=== PATIENT | female | born 1970 | race Caucasian/White ===

== ENCOUNTER 2023-08-23 10:19 | Outpatient (CLI) | payer MEDICAID ==
[~2023-08-23 10:19] MED LIST: FERR240T15 PO; HYDR473S49 PO; PANT-47 PO
== END 2023-08-23 23:59 | disposition home or self-care (01) ==
LOC: MRI 10:19
PROVIDERS: ATTEND Specialist
DX: M75.31 Calcific tendinitis of right shoulder (principal); M25.511 Pain in right shoulder
CPT/HCPCS: 73221